=== PATIENT | male | born 2000 | race Caucasian/White ===

== ENCOUNTER 2022-10-22 11:45 | Emergency (ER) | payer OTHER ==
[~2022-10-22] VITALS: Ht 177.8 cm; Wt 102.0 kg
--- NOTE | 2022-10-22 12:16 | ED Abdominal Pain ---
General Stated Complaint: ABD PAIN Source of Information: Patient Exam Limitations: No Limitations History of Present Illness Date Seen by Provider: Oct 22, 2022 Time Seen by Provider: 12:20 Initial Comments This is a well appearing 21-year-old male with history of IBS who presented to the ER with complaints of intermittent sharp abdominal pain and diarrhea that started this morning. States that he ate a bunch of almonds last night and does not typically eat these nuts. Unsure if this is the source of his pain. He denies any fever, chills, bloody, black, tarry diarrhea. Denies nausea or vomiting. States pain is sharp and intermittent, is better now that he is in the emergency department. Has not taken anything prior to arrival. He takes probiotic Gummies for his IBS at home. States that he is not consistent with taking these. 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 Denies tobacco and illicit drug use. Allergies and Home Medications Allergies Coded Allergies: No Known Drug Allergies (Unverified , 10/22/22) Patient Home Medication List Home Medication List Reviewed: Yes Dicyclomine HCl (Dicyclomine HCl) 10 Mg Capsule, 10 MG PO QIDACHS Prescribed by: CÉSAR ORELLANA on 10/22/22 1089 Review of Systems Review of Systems Constitutional: no symptoms reported EENTM: No Symptoms Reported Respiratory: No Symptoms Reported Cardiovascular: No Symptoms Reported Gastrointestinal: See HPI; Denies Abdomen Distended; Abdominal Pain Genitourinary: No Symptoms Reported Musculoskeletal: no symptoms reported Skin: no symptoms reported Psychiatric/Neurological: No Symptoms Reported Endocrine: No Symptoms Reported Hematologic/Lymphatic: No Symptoms Reported Physical Exam Vital Signs Capillary Refill : Height/Weight/BMI Height: '" Weight: lbs. oz. kg; BMI Method: General Appearance: WD/WN, no apparent distress HEENT: PERRL/EOMI, normal ENT inspection, pharynx normal Neck: full range of motion, supple, normal inspection Respiratory: lungs clear, normal breath sounds, no respiratory distress, no accessory muscle use Cardiovascular: regular rate, rhythm, no murmur Gastrointestinal: normal bowel sounds, soft, other (no epigastric tenderness. Has mild tenderness of mid abdominal region. 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 nml as tested (grossly intact ), no motor/sensory deficits, alert, normal mood/affect, oriented x 3 Skin: normal color, warm/dry Progress/Results/Core Measures Results/Orders My Orders Orders - CÉSAR ORELLANA APRN Ua Culture If Indicated (10/22/22 11:48) Abdomen, Flat & Upright/Decub (10/22/22 12:25) Dicyclomine Injection (Bentyl Injection) (10/22/22 12:30) Medications Given in ED Current Medications Medications Dose Ordered Sig/Stephanie Route Start Time Stop Time Status Last Admin Dose Admin Dicyclomine HCl 20 mg ONCE ONCE IM 10/22/22 12:30 10/22/22 12:31 DC 10/22/22 12:40 20 MG Progress Progress Note : Progress Note Patient examined in no acute distress. Vital signs are stable. No evidence of acute abdomen at this time. He has no systemic symptoms. Given history and description of pain that this is likely related to his IBS. He has no elevated fever or tachycardia. He has no epigastric tenderness to suggest pancreatitis. Will defer labs and CT imaging given lack of systemic symptoms and improvement of pain. Notes that he does not pass as much gas as norm, we will go ahead and obtain a KUB to evaluate bowel gas pattern. Discussed trying dicyclomine injection to see if this would improve some of his discomfort and he is agreeable to try. States that his pain is improved after dicyclomine injection. KUB negative for acute features. Discharge plan of care reviewed and he is agreeable with plan. Instructed to return to the emergency department if he has any onset of systemic symptoms such as fever, nausea vomiting, increased or change in pain. Verbalized understanding. He is agreeable with treatment plan as described. Diagnostic Imaging Diagonstic Imaging: Xray Comments [facility], [place] NAME: AISHWARYA HERNANDEZ [facility] REC#: [id number] PT STATUS: REG ER : 2000 PHYSICIAN: CÉSAR ORELLANA APRN ADMIT DATE: 10/22/22/ER Draft Date of Exam:10/22/22 ABDOMEN, FLAT & UPRIGHT/DECUB ABDOMEN, FLAT UPRIGHT/DECUB INDICATION: Abdominal pain COMPARISON: None available. TECHNIQUE: Upright and supine AP view of the abdomen. FINDINGS: Nonobstructive bowel gas pattern. No features of free intraperitoneal air. Small amount of gas is present within the colon. Lung bases are clear. Normal regional skeleton. IMPRESSION: No radiographic abnormality in the abdomen. Dictated on workstation # [id number] Dict: 10/22/22 1303 Trans: 10/22/22 1304 CV [id number] Interpreted by: NIRMALA RUTH MD Electronically signed by: Departure Impression Primary Impression: IBS (irritable bowel syndrome) Disposition: 01 HOME, SELF-CARE Condition: Improved Departure-Patient Inst. Decision time for Depature: 13:02 Referrals: NO,LOCAL PHYSICIAN (PCP/Family) Primary Care Physician Patient Instructions: Irritable Bowel Syndrome Add. Discharge Instructions: Plan: 1. Avoid aggravating foods that cause abdominal pain and increased diarrhea. 2. He can take dicyclomine up to 4 times a day as needed for abdominal cramping and pain. 3. Follow-up with primary care provider if you have persistent symptoms. 4. Return to the ER if you have any nausea, fever, vomiting, dark or bloody stools. Return if you have any increase or change in abdominal pain. Scripts Dicyclomine HCl (Dicyclomine HCl) 10 Mg Capsule 10 MG PO QIDACHS for 10 Days, #40 CAP 0 Refills Prov: CÉSAR ORELLANA APRN 10/22/22 CÉSAR ORELLANA [id number] DEVELOPER Oct 22, 2022 12:16
[2022-10-22] MEDS ORDERED: DICYCLOMINE 10 MG/ML (BENTYL) 2 ML AMP IM ONE (12:30)
--- NOTE | 2022-10-22 13:04 | Diagnostic Imaging Report ---
ABDOMEN, FLAT UPRIGHT/DECUB INDICATION: Abdominal pain COMPARISON: None available. TECHNIQUE: Upright and supine AP view of the abdomen. FINDINGS: Nonobstructive bowel gas pattern. No features of free intraperitoneal air. Small amount of gas is present within the colon. Lung bases are clear. Normal regional skeleton. IMPRESSION: No radiographic abnormality in the abdomen. Dictated by: Dictated on workstation # [id number]
[2022-10-22] MEDS ORDERED: DICY10CA12 PO (13:09)
[2022-10-22 13:15] VITALS: BP 135/108
== END 2022-10-22 13:20 | disposition home or self-care (01) ==
LOC: ER 11:51
DX: K58.0 Irritable bowel syndrome with diarrhea (principal); Z28.310 Unvaccinated for COVID-19
CPT/HCPCS: 74019